=== PATIENT | male | born 1955 | race American Indian/Alaskan Native ===

== ENCOUNTER 2020-12-16 09:22 | Emergency (ER) | payer OTHER ==
[2020-12-16] MEDS ORDERED: ACETAMINOPHEN 325 MG TAB PO ONE (09:49)
--- NOTE | 2020-12-16 09:53 | Emergency Department Report ---
HPI - General Chief Complaint: Dyspnea/Respdistress PUI?: Yes Time Seen by Provider: 12/16/20 09:41 - HPI HPI: This is a 65-year-old -Citizen Of [place] male presents to the emergency department via EMS from home with complaint of shortness of breath, intermittent fever, cough, generalized weakness/fatigue that has been going on for the past 5 to 6 days and getting progressively worse. The patient was found to be positive for COVID-19 on 12/12/2020. Per EMS, the patient had a room air pulse ox of 86% upon their arrival. He has a past medical history of hypertension and insulin- dependent diabetes. The patient follows through [facility] for primary care. No recent travel. Patient denies any nausea, vomiting, diaphoresis, chest pain, lower extremity swelling. ED Past Medical Hx - Past Medical History Hx Hypertension: Yes Hx Diabetes: Yes - Surgical History Additional Surgical History: cataract surgery, bilateral - Social History Smoking Status: Never Smoker Substance Use Type: None ED Review of Systems ROS: Stated complaint: COVID/SOB Other details as noted in HPI Comment: All other systems reviewed and negative Constitutional: fever, weakness Eyes: denies: eye pain, vision change ENT: denies: ear pain, throat pain Respiratory: cough, shortness of breath, SOB with exertion Cardiovascular: denies: chest pain, edema Gastrointestinal: denies: abdominal pain, vomiting Genitourinary: denies: dysuria, discharge Musculoskeletal: myalgia. denies: joint swelling Skin: denies: rash, lesions Neurological: denies: numbness, paresthesias Physical Exam - Physical Exam Vital Signs: Vital Signs 12/16/20 12/16/20 09:26 09:42 Temperature 100.3 F H Pulse Rate 100 H Respiratory 20 18 Rate Blood Pressure 119/65 Physical Exam: GENERAL: The patient is well-developed well-nourished. HENT: Normocephalic. Atraumatic. Patient has moist mucous membranes. EYES: Extraocular motions are intact. NECK: Supple. Trachea is midline. CHEST/LUNGS: Some mild rhonchi heard bilaterally. Mild tachypnea but no accessory muscle use. There is no respiratory distress noted. HEART/CARDIOVASCULAR: Regular. There is no tachycardia. There is no murmur. ABDOMEN: Abdomen is soft, nontender. Patient has normal bowel sounds. SKIN: Skin is warm and dry. NEURO: The patient is awake, alert, and oriented. The patient is cooperative. The patient has no focal neurologic deficits. Normal speech. MUSCULOSKELETAL: There is no tenderness or deformity. There is no limitation range of motion. ED Course Vital Signs 12/16/20 12/16/20 09:26 09:42 Temperature 100.3 F H Pulse Rate 100 H Respiratory 20 18 Rate Blood Pressure 119/65 - Consultations Consultation #1: 12/16/20 11:32 This patient will require admission for COVID-19 pneumonia and hypoxia. As he is a [facility] patient, I spoke with Dr. Lott through the [facility] transfer hub. She says that the patient will be accepted to [facility] pending a CT angiography of the chest. The accepting physician will be a Dr. Leija. 12/16/20 11:53 Dr. Lott later called back and says that the patient had a CT angiography of the chest done on 12/13/2020 that did not show any evidence of a pulmonary embolism and appeared consistent with Covid pneumonia. Therefore they do not require a repeat CT angiography of the chest at this time and the patient has been accepted to [facility]. They will provide transportation. ED Medical Decision Making - Lab Data Result diagrams: 12/16/20 10:02 12/16/20 10:02 Lab Results 12/16/20 12/16/20 12/16/20 Range/Units 10:02 10:02 10:02 WBC 3.5 L (4.5-11.0) K/mm3 RBC 4.21 (3.65-5.03) M/mm3 Hgb 12.7 (11.8-15.2) gm/dl Hct 37.7 (35.5-45.6) % MCV 90 (84-94) fl MCH 30 (28-32) pg MCHC 34 (32-34) % RDW 13.7 (13.2-15.2) % Plt Count 240 (140-440) K/mm3 Lymph % (Auto) 13.8 (13.4-35.0) % [place] % (Auto) 13.5 H (0.0-7.3) % Eos % (Auto) 0.0 (0.0-4.3) % Baso % (Auto) 0.3 (0.0-1.8) % Lymph # (Auto) 0.5 L (1.2-5.4) K/mm3 [place] # (Auto) 0.5 (0.0-0.8) K/mm3 Eos # (Auto) 0.0 (0.0-0.4) K/mm3 Baso # (Auto) 0.0 (0.0-0.1) K/mm3 Seg Neutrophils % 72.4 H (40.0-70.0) % Seg Neutrophils # 2.5 (1.8-7.7) K/mm3 PT (12.2-14.9) Sec. INR (0.87-1.13) D-Dimer (0-234) ng/mlDDU Sodium 131 L (137-145) mmol/L Potassium 4.7 (3.6-5.0) mmol/L Chloride 98.6 (98-107) mmol/L Carbon Dioxide 25 (22-30) mmol/L Anion Gap 12 mmol/L BUN 25 H (9-20) mg/dL Creatinine 1.6 H (0.8-1.3) mg/dL Estimated GFR 53 ml/min BUN/Creatinine Ratio 16 % Glucose 325 H (75-100) mg/dL Calcium 7.7 L (8.4-10.2) mg/dL Ferritin (30.0-300.0) ng/mL Total Bilirubin 0.50 (0.1-1.2) mg/dL AST 29 (5-40) units/L ALT 26 (7-56) units/L Alkaline Phosphatase 86 (35-129) units/L Lactate Dehydrogenase (91-180) units/L Troponin T 0.014 (0.00-0.029) ng/mL C-Reactive Protein (0.00-1.30) mg/dL NT-Pro-B Natriuret Pep 96.49 (0-900) pg/mL Total Protein 6.8 (6.3-8.2) g/dL Albumin 3.4 L (3.9-5) g/dL Albumin/Globulin Ratio 1.0 % Procalcitonin (<0.15) ng/mL TSH 2.110 (0.270-4.200) mlU/mL 12/16/20 12/16/20 12/16/20 Range/Units 10:02 10:02 10:02 WBC (4.5-11.0) K/mm3 RBC (3.65-5.03) M/mm3 Hgb (11.8-15.2) gm/dl Hct (35.5-45.6) % MCV (84-94) fl MCH (28-32) pg MCHC (32-34) % RDW (13.2-15.2) % Plt Count (140-440) K/mm3 Lymph % (Auto) (13.4-35.0) % [place] % (Auto) (0.0-7.3) % Eos % (Auto) (0.0-4.3) % Baso % (Auto) (0.0-1.8) % Lymph # (Auto) (1.2-5.4) K/mm3 [place] # (Auto) (0.0-0.8) K/mm3 Eos # (Auto) (0.0-0.4) K/mm3 Baso # (Auto) (0.0-0.1) K/mm3 Seg Neutrophils % (40.0-70.0) % Seg Neutrophils # (1.8-7.7) K/mm3 PT 13.3 (12.2-14.9) Sec. INR 1.03 (0.87-1.13) D-Dimer 333.31 H (0-234) ng/mlDDU Sodium (137-145) mmol/L Potassium (3.6-5.0) mmol/L Chloride (98-107) mmol/L Carbon Dioxide (22-30) mmol/L Anion Gap mmol/L BUN (9-20) mg/dL Creatinine (0.8-1.3) mg/dL Estimated GFR ml/min BUN/Creatinine Ratio % Glucose (75-100) mg/dL Calcium (8.4-10.2) mg/dL Ferritin 244.5 (30.0-300.0) ng/mL Total Bilirubin (0.1-1.2) mg/dL AST (5-40) units/L ALT (7-56) units/L Alkaline Phosphatase (35-129) units/L Lactate Dehydrogenase (91-180) units/L Troponin T (0.00-0.029) ng/mL C-Reactive Protein (0.00-1.30) mg/dL NT-Pro-B Natriuret Pep (0-900) pg/mL Total Protein (6.3-8.2) g/dL Albumin (3.9-5) g/dL Albumin/Globulin Ratio % Procalcitonin (<0.15) ng/mL TSH (0.270-4.200) mlU/mL 12/16/20 12/16/20 Range/Units 10:02 10:02 WBC (4.5-11.0) K/mm3 RBC (3.65-5.03) M/mm3 Hgb (11.8-15.2) gm/dl Hct (35.5-45.6) % MCV (84-94) fl MCH (28-32) pg MCHC (32-34) % RDW (13.2-15.2) % Plt Count (140-440) K/mm3 Lymph % (Auto) (13.4-35.0) % [place] % (Auto) (0.0-7.3) % Eos % (Auto) (0.0-4.3) % Baso % (Auto) (0.0-1.8) % Lymph # (Auto) (1.2-5.4) K/mm3 [place] # (Auto) (0.0-0.8) K/mm3 Eos # (Auto) (0.0-0.4) K/mm3 Baso # (Auto) (0.0-0.1) K/mm3 Seg Neutrophils % (40.0-70.0) % Seg Neutrophils # (1.8-7.7) K/mm3 PT (12.2-14.9) Sec. INR (0.87-1.13) D-Dimer (0-234) ng/mlDDU Sodium (137-145) mmol/L Potassium (3.6-5.0) mmol/L Chloride (98-107) mmol/L Carbon Dioxide (22-30) mmol/L Anion Gap mmol/L BUN (9-20) mg/dL Creatinine (0.8-1.3) mg/dL Estimated GFR ml/min BUN/Creatinine Ratio % Glucose (75-100) mg/dL Calcium (8.4-10.2) mg/dL Ferritin (30.0-300.0) ng/mL Total Bilirubin (0.1-1.2) mg/dL AST (5-40) units/L ALT (7-56) units/L Alkaline Phosphatase (35-129) units/L Lactate Dehydrogenase 320 H (91-180) units/L Troponin T (0.00-0.029) ng/mL C-Reactive Protein 6.00 H (0.00-1.30) mg/dL NT-Pro-B Natriuret Pep (0-900) pg/mL Total Protein (6.3-8.2) g/dL Albumin (3.9-5) g/dL Albumin/Globulin Ratio % Procalcitonin < 0.05 (<0.15) ng/mL TSH (0.270-4.200) mlU/mL - EKG Data -: EKG Interpreted by Me EKG shows normal: sinus rhythm, axis, intervals, QRS complexes (Right bundle branch block, Q waves to the inferior leads), ST-T waves Rate: normal - EKG Data When compared to previous EKG there are: previous EKG unavailable Interpretation: other (Sinus rhythm at 86 bpm, normal axis, normal intervals, right bundle branch block, Q waves to the inferior leads.) - Radiology Data Radiology results: image reviewed interpreted by me: Chest x-ray shows bilateral patchy infiltrates concerning for pneumonia. No obvious pleural effusions. No pneumothorax. No osseous abnormalities. - Medical Decision Making This patient presents with a complaint of shortness of breath, weakness, cough, intermittent fever, and a recent positive COVID-19 test. Chest x-ray shows bilateral patchy infiltrates concerning for pneumonia and consistent with atypical pneumonia from COVID-19. The patient was 86% oxygen saturation on room air when seen by EMS. In the emergency department the patient does drop down into the low 90s and was given supplemental oxygen via nasal cannula. The patient's labs appear consistent with a viral syndrome and COVID-19 as he has leukopenia, lymphopenia, and some elevation to the inflammatory markers such as D-dimer, LDH and CRP. Because of the hypoxia, the patient requires admission for further evaluation and treatment. Since he has [employer] insurance, [facility] was contacted and they have chosen to transfer the patient to [facility]. Critical Care Time: No Critical care attestation.: If time is entered above; I have spent that time in minutes in the direct care of this critically ill patient, excluding procedure time. ED Disposition Clinical Impression: COVID-19, Bilateral pneumonia, Hypoxia Disposition: DC/TX-70 ANOTHER TYPE HLTHCARE Is pt being admited?: No Condition: Fair Instructions: Bacterial Pneumonia (ED) Time of Disposition: 15:15
[2020-12-16 10:33] LABS: Basophils % (Auto) 0.3 % (0.0-1.8); Hematocrit 37.7 % (35.5-45.6); Hemoglobin 12.7 gm/dl (11.8-15.2); Lymphocytes # (Auto) 0.5 K/mm3 (1.2-5.4); Lymphocytes % (Auto) 13.8 % (13.4-35.0); Mean Corpuscular HGB Conc 34 % (32-34); Mean Corpuscular Volume 90 fl (84-94); Monocytes # (Auto) 0.5 K/mm3 (0.0-0.8); Monocytes % (Auto) 13.5 % (0.0-7.3); Platelet Count 240 K/mm3 (140-440); Red Blood Count 4.21 M/mm3 (3.65-5.03); Red Cell Distribution Width 13.7 % (13.2-15.2)
[2020-12-16 10:44] LABS: INR 1.03 (0.87-1.13)
[2020-12-16 10:45] LABS: Albumin 3.4 g/dL (3.9-5); Calcium 7.7 mg/dL (8.4-10.2)
[2020-12-16] MEDS ORDERED: SODIUM CHLORIDE 0.9% 1000 ML 1,000 ML IV ONE (10:48)
[2020-12-16] MEDS ORDERED: AZITHROMYCIN/NS 500 MG/250 ML 500 MG/250 ML BAG IV ONE (10:48)
[2020-12-16] MEDS ORDERED: methylPREDNISolone Sod Succinate 125 MG/2 ML INJ IV ONE (10:48)
--- NOTE | 2020-12-16 10:48 | XRay Report ---
CHEST 1 VIEW 12/16/2020 10:14 AM INDICATION / CLINICAL INFORMATION: SOB. COMPARISON: Acute abdominal series from 04/05/2008. FINDINGS: SUPPORT DEVICES: None. HEART / MEDIASTINUM: No significant abnormality. LUNGS / PLEURA: Lung volumes are reduced with predominantly bibasilar opacities. No significant pleur al effusion. No pneumothorax. ADDITIONAL FINDINGS: No significant additional findings. IMPRESSION: 1. Bibasilar opacities may represent pneumonia. Continued radiographic follow-up to resolution is rec ommended. Signer Name: Suleiman Logan MD Signed: 12/16/2020 10:44 AM Workstation Name: [id number]
[2020-12-16 15:26] VITALS: BP 136/71
== END 2020-12-16 15:26 | disposition other institution (70) ==
LOC: ED 09:22
DX: U07.1 COVID-19 (principal); R09.02 Hypoxemia; J18.9 Pneumonia, unspecified organism; I10 Essential (primary) hypertension; E11.9 Type 2 diabetes mellitus without complications; Z79.899 Other long term (current) drug therapy; Z98.890 Other specified postprocedural states
CPT/HCPCS: 36415; 71045; 80053; 82728; 83615; 83880; 84145; 84443; 84484; 85025; 85379; 85610; 86140; 96365; 96366; 96375; 99285; J0456; J2930; J7030; 93005